=== PATIENT | female | born 1970 | race Hispanic/Latino ===

== ENCOUNTER 2025-04-20 13:40 | Inpatient (IN) | payer MEDICARE, MEDICAID ==
[~2025-04-20] VITALS: Ht 157.5 cm; Wt 89.5 kg
--- NOTE | 2025-04-20 14:49 | ERN ---
General Chief Complaint: LOWER EXTREMITY EDEMA Stated Complaint: RIGHT LEG SWELLING Time Seen by MD: 13:41 Source: patient History of Present Illness Initial Comments My patient, 54-year-old female, presented to the emergency with complaint of right lower extremity swelling. She states that swelling started more than a week ago and it was associated with pain, erythema and induration of the right lower extremity. Patient also has history of psoriasis. Timing/Duration: 1 week Allergies: Coded Allergies: No Known Drug Allergies (Unverified Allergy, Unknown, 04/20/25) Past Medical History Past Medical History: Other Medical History Other: CEREBRAL PALSY, PSORIASIS Past Surgical History: None EENTM: (-) eye pain, (-) blurred vision, (-) tearing, (-) double vision, (-) ear pain, (-) ear discharge, (-) nose pain, (-) nose congestion, (-) throat pain, (-) Throat swelling, (-) mouth pain, (-) tooth pain, (-) mouth swelling, (-) other documentation Respiratory: (-) cough, (-) orthopnea, (-) short of breath, (-) stridor, (-) wheezing, (-) other documentation Cardiovascular: (-) chest pain, (-) edema, (-) palpitations, (-) syncope, (-) dyspnea on exertion, (-) other documentation Gastrointestinal/Abdominal: (-) nausea, (-) vomiting, (-) diarrhea, (-) abdominal pain, (-) abdominal distention, (-) constipation, (-) rectal bleeding, (-) dark stool/melena, (-) other documentation Musculoskeletal: (+) other documentation (Right lower extremity swelling, erythema and tenderness.) Skin: (+) rash, (+) dryness, (+) other documentation (Psoriasis) Physical Exam General Appearance: (+) apparent distress Head/Face Trauma: No Ear, Nose, Throat: (+) hearing grossly normal, (+) moist mucous membraine Neck: (+) normal inspection, (+) supple, (+) full range of motion Respiratory: (+) chest non-tender, (+) lungs clear Heart: (+) regular, (+) no gallop Gastrointestinal: (+) soft, (+) non-tender Back: (+) normal inspection, (+) no CVA tenderness Extremities: (+) normal range of motion, (+) inflammation, (+) swelling, (+) other (Right lower extremity swollen with indurated and erythematous skin) Skin: (+) rash Results Laboratory and Microbiology Lab and Micro Result Laboratory Tests Test 04/20/25 15:08 04/20/25 17:21 White Blood Count 5.9 K/uL (4.8-10.8) Red Blood Count 5.05 MIL/uL (4.00-5.50) Hemoglobin 14.4 g/dL (12.0-16.0) Hematocrit 46.8 % (36-48) Mean Corpuscular Volume 92.7 fL (79-99) Mean Corpuscular Hemoglobin 28.5 pg (27.0-33.0) Mean Corpuscular Hemoglobin Concent 30.8 g/dL (32.0-36.0) L Red Cell Distribution Width 14.5 % (11.0-15.5) Platelet Count 242 K/uL (130-400) Mean Platelet Volume 10.0 fL (7.5-10.5) Immature Granulocyte % (Auto) 0.3 % (0-1) Neutrophils (%) (Auto) 64.5 % (40.0-77.0) Lymphocytes (%) (Auto) 22.4 % (21.0-51.0) Monocytes (%) (Auto) 7.8 % (3.0-13.0) Eosinophils (%) (Auto) 4.3 % (0.0-8.0) Basophils (%) (Auto) 0.7 % (0.0-5.0) Neutrophils # (Auto) 3.8 K/uL (1.8-7.7) Lymphocytes # (Auto) 1.3 K/uL (1.0-4.8) Monocytes # (Auto) 0.5 K/uL (0.1-1.0) Eosinophils # (Auto) 0.25 K/uL (0.00-0.70) Basophils # (Auto) 0.04 K/uL (0.00-0.20) Absolute Immature Granulocyte (auto 0.02 K/uL (0-1) Nucleated Red Blood Cells 0.0 % (0.0-0.19) Red Blood Cell Morphology See comments Sodium Level 142 mmol/L (136-145) Potassium Level 3.2 mmol/L (3.5-5.1) L Chloride Level 102 mmol/L (101-111) Carbon Dioxide Level 33 mmol/L (21-32) H Blood Urea Nitrogen 13 mg/dL (7-18) Creatinine 0.7 mg/dL (0.5-1.0) Glomerular Filtration Rate Calc 103 mL/min (>90) Random Glucose 92 mg/dL (70-105) Total Calcium 8.4 mg/dL (8.5-10.1) L Troponin I High Sensitivity 7 ng/L (4-50) B-Type Natriuretic Peptide 24 pg/mL (0-100) Urine Color YELLOW (YELLOW) Urine Appearance SL CLOUDY (CLEAR) Urine pH 7.5 (5.0-8.0) Urine Specific [place] 1.015 (1.001-1.031) Urine Protein NEGATIVE mg/dL (NEGATIVE) Urine Glucose (UA) NEGATIVE mg/dL (NEGATIVE) Urine Ketones NEGATIVE mg/dL (NEGATIVE) Urine Occult Blood SMALL (NEGATIVE) H Urine Nitrate NEGATIVE (NEGATIVE) Urine Bilirubin NEGATIVE mg/dL (NEGATIVE) Urine Urobilinogen 2.0 mg/dL (0.2-1.0) H Urine Leukocyte Esterase SMALL Jarvis/uL (NEGATIVE) H Urine RBC 0-1 /HPF (0-1) Urine WBC 2-5 /HPF (0-1) H Urine Squamous Epithelial Cells Few /HPF (0-2) Urine Bacteria Few /HPF (None Seen) EKG/XRAY/US/CT/MRI EKG Comment No ST-elevation Rate 65 NE 167 QT 410 [place]: P 8, QRS 98, T 26 X-RAY Comment Chest x-ray No acute cardiopulmonary pathology is evident. MDM MDM: Differential diagnosis: Right lower extremity cellulitis versus erysipelas versus DVT My patient, 54-year-old female, presented with complaint of right lower extremity swelling. She states that swelling started more than a week ago and it was associated with pain, erythema and induration of the right lower extremity. CBC, BMP and UA profile were taken. Venous Doppler of lower extremity was done. For hypokalemia, patient was given K-Lyte. Patient was also given Rocephin 1 g. Patient will be admitted under the care of hospitalist ED Course Orders Procedure Category Date Status Time Cbc With Differential LAB 04/20/25 Complete 14:02 Chest 1vw RAD 04/20/25 Resulted 14:02 12 Lead Ekg Tracing- EKG 04/20/25 Complete Technical 14:02 Troponin I High LAB 04/20/25 Complete Sensitivity 14:02 Basic Metabolic Panel LAB 04/20/25 Complete 14:02 B-Type Natriuretic LAB 04/20/25 Complete Peptide 14:02 Us Venous Doppler US 04/20/25 Taken Bilateral 14:28 Urinalysis Profile LAB 04/20/25 Complete 14:33 Potassium Bicarb/Cit PHA 04/20/25 Complete Ac 25meq (K-Lyte Ta 16:00 Ceftriaxone 1g Vial PHA 04/20/25 Complete (Rocephine 1g Inj) 16:30 Current Medications Medications (Trade) Dose Ordered Sig/Pedrito Route PRN Reason Start Time Stop Time Status Last Admin Dose Admin Ceftriaxone Sodium (ROCEphine 1G INJ) 1 gm ONCE ONCE IVPB 04/20/25 16:30 04/20/25 16:31 DC 04/20/25 18:29 Potassium Bicarbonate (K-Lyte Tablet Eff 25 Meq Tablet.eff) 50 meq ONCE ONCE PO 04/20/25 16:00 04/20/25 16:01 DC 04/20/25 16:00 Vital Signs Date Time Temp Pulse Resp B/P (MAP) Pulse Ox O2 Delivery O2 Flow Rate FiO2 04/20/25 18:33 98.8 68 19 142/74 98 Room Air* 0 04/20/25 15:39 97.9 66 25 156/99 95 Room Air* 0 21 04/20/25 13:41 97.9 70 16 182/89 97 Room Air 0 DX & DISP Disposition: Inpatient Decision to Admit Time: 18:49 Departure Impression: Primary Impression: Cellulitis of right lower extremity Additional Impression: Hypokalemia Condition: Stable Referrals: NONE (PCP) JOSE R RUELAS MD Apr 20, 2025 14:49 FERDINAND PAIGE MD Apr 20, 2025 18:50
--- NOTE | 2025-04-20 15:12 | HMCIMG ---
EXAM: CR Chest, 1 View. CLINICAL HISTORY: SOB COMPARISON: None provided. FINDINGS: LUNGS: There is no mass, infiltrate, or acute pulmonary abnormality. PLEURAL SPACES: No evidence of pleural effusion or pneumothorax. MEDIASTINUM: The cardiomediastinal silhouette is within normal limits. BONES: No acute osseous abnormality. IMPRESSION: No acute cardiopulmonary pathology is evident. /Goodman
--- NOTE | 2025-04-20 15:26 | EKG ---
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
[2025-04-20 15:33] LABS: IMMATURE GRANULOCYTE ABSOLUTE 0.02 K/uL (0-1); NUCLEATED RED BLOOD CELLS 0.0 % (0.0-0.19); PLATELET COUNT (AUTO) 242 K/uL (130-400); RED BLOOD CELL COUNT(AUTO) 5.05 MIL/uL (4.00-5.50); RED CELL DISTRIBUTION WIDTH 14.5 % (11.0-15.5); WHITE BLOOD COUNT (AUTO) 5.9 K/uL (4.8-10.8)
[2025-04-20 15:45] LABS: CREATININE 0.7 mg/dL (0.5-1.0); GLOMERULAR FILTR. RATE CALC 103.0 mL/min (>90); GLUCOSE,RANDOM 92.0 mg/dL (70-105); SODIUM SERUM 142.0 mmol/L (136-145); UREA NITROGEN, BLOOD 13.0 mg/dL (7-18)
[2025-04-20 17:33] LABS: APPEARANCE,URINE SL CLOUDY (CLEAR); GLUCOSE, URINE (UA) NEGATIVE (NEGATIVE); LEUKOCYTE ESTERASE ,URINE SMALL Leu/uL (NEGATIVE); NITRATE,URINE NEGATIVE (NEGATIVE); OCCULT BLOOD,URINE SMALL (NEGATIVE)
[2025-04-20 17:35] LABS: ADD UA MICROSCOPIC YES
[2025-04-20 17:52] LABS: SQUAMOUS EPITHELIAL CELL,UR Few /HPF (0-2)
--- NOTE | 2025-04-20 18:51 | HP ---
[facility] HISTORY AND PHYSICAL Date of Service: Apr 20, 2025 Time of Service: 18:51 PCP: Mary Anne HISTORY OF PRESENT ILLNESS: This is a 54-year-old female with past medical history of cerebral palsy, psoriasis and morbid obesity who was brought by EMS to the ED complaints of right lower extremity swelling which started for the past six days.As per sister who was at bedside ,patient reports something bit her leg 6 days ago and it has been hurting her only at night she said.Patient also noted to have multiple scaly rashes she said she has been having it since last month.As per sister patient went to see her PCP last week and was given meds but no improvement. Seen and examined patient int he ER awake,alert ,coherent and appears comfortable.Patient right lower extremity is red,warm and swollen.Patient denies fever,chills,nausea,vomiting ,chest pain and shortness of breath. Latest vital signs temperature 98.8, heart rate 67, blood pressure 142/76 saturation 95% on 2 L nasal cannula. Labs: CBC unremarkable. Potassium 3.2, CO2 33, total calcium 8.4 troponin seven BNP 24. Urinalysis with trace of esterase and few urine bacteria. Chest x-ray result revealed no acute cardiopulmonary pathology is evident. Venous Doppler to right lower extremity is negative for DVT for preliminary result. While in the ED patient received potassium replacement and ceftriaxone 1 g IV. We will admit patient for further medical management. REVIEW OF SYSTEMS CONSTITUTIONAL: Denies fevers, chills, or night sweats. No unintentional weight loss reported. NEUROLOGICAL: Denies headache, amaurosis fugax, motor weakness, sensory deficit, vertigo/spinning sensation, gait abnormalities, or tremors. ENT: No hearing loss, otalgia, otorrhea, rhinitis, rhinorrhea, hoarseness, or sore throat. CARDIOVASCULAR: Denies any exertional angina, dyspnea on exertion, orthopnea, paroxysmal nocturnal dyspnea, palpitations, life-threatening arrhythmias, claudication. PULMONARY: Denies any shortness of breath, cough, phlegm/sputum, hemoptysis, pleuritic chest pain. SLEEP: Denies morning headaches, daytime somnolence or napping. Denies difficulty falling asleep, staying asleep, waking from sleep. Denies knowledge of snoring. GASTROINTESTINAL: Denies any type of dysphagia to either liquids or solids. Denies nausea, vomiting, pyrosis, early satiety, abdominal pain, diarrhea, constipation, or changes in stool consistency or caliber. Denies coffee-ground emesis, hematemesis, hematochezia, or melanotic stools. GENITOURINARY: Denies frequency, urgency, nocturia, hematuria or incontinence (Storage/Irritative symptoms.) Low urinary stream, straining to void, urinary intermittency or hesitancy, splitting of the voiding stream, terminal dribbling. ENDOCRINOLOGIC: Denies polyuria, polydipsia, polyphagia or heat/cold intoleran damaris. HEMATOLOGIC: Denies thrombophilia/previous clots, or coagulopathy/bleeding disorders. ONCOLOGIC: Denies personal history of malignancy. DERMATOLOGIC: Denies rashes or pruritus. PSYCHIATRIC: Denies any suicidal or homicidal ideation. Denies hallucinations. PAST MEDICAL HISTORY: [ Protocol seek, psoriasis and morbid obesity ] PAST SURGICAL HISTORY: [Kidney stone removal six months ago ] PAST SOCIAL HISTORY: [ Patient lives with sister. Patient denies alcohol tobacco and recreational drug use ] FAMILY HISTORY: [ Noncontributory ] Coded Allergies: No Known Drug Allergies (Unverified Allergy, Unknown, 04/20/25) PHYSICAL EXAM GENERAL APPEARANCE: The patient is awake, alert, and oriented, in no acute cardiopulmonary distress. NEUROLOGICAL: Cranial nerves II-XII grossly intact. Motor is 5/5 in bilateral upper and lower extremities proximal to distal. No sensory deficits. HEENT: Face is symmetric. Pupils are equal and reactive. Extraocular movements are intact. NECK: Supple. No JVD. No thyromegaly. No submental, submandibular, pre- /postauricular, occipital or supraclavicular lymphadenopathy. CHEST: Normal chest expansion. No Telemetry. LUNGS: Absence of any rales, rhonchi or any wheezing. CARDIOVASCULAR: Regular. S1 and S2 normal. No appreciable rubs, murmurs or gallops. ABDOMEN: Soft, nontender, and nondistended. There is no rebound, voluntary guarding, or rigidity. : Deferred. No [place]. EXTREMITIES: Non-edematous and not cyanotic. No clubbing. Good capillary refill. SKIN: No skin breakdown. Vital Sign (Last 24 Hours) 04/20/25 18:33 Temp 98.8 Pulse 68 Resp 19 B/P (MAP) 142/74 Pulse Ox 98 O2 Delivery Room Air* O2 Flow Rate 0 FiO2 21 LABS: Laboratory: Test 04/20/25 17:21 04/20/25 15:08 Range/Units Urine Color YELLOW YELLOW Urine Appearance SL CLOUDY CLEAR Urine pH 7.5 5.0-8.0 Urine Specific [place] 1.015 1.001-1.031 Urine Protein NEGATIVE NEGATIVE mg/dL Urine Glucose (UA) NEGATIVE NEGATIVE mg/dL Urine Ketones NEGATIVE NEGATIVE mg/dL Urine Occult Blood SMALL H NEGATIVE Urine Nitrate NEGATIVE NEGATIVE Urine Bilirubin NEGATIVE NEGATIVE mg/dL Urine Urobilinogen 2.0 H 0.2-1.0 mg/dL Urine Leukocyte Esterase SMALL H NEGATIVE [place]/uL Urine RBC 0-1 0-1 /HPF Urine WBC 2-5 H 0-1 /HPF Urine Squamous Epithelial Cells Few 0-2 /HPF Urine Bacteria Few None Seen /HPF White Blood Count 5.9 4.8-10.8 K/uL Red Blood Count 5.05 4.00-5.50 MIL/uL Hemoglobin 14.4 12.0-16.0 g/dL Hematocrit 46.8 36-48 % Mean Corpuscular Volume 92.7 79-99 fL Mean Corpuscular Hemoglobin 28.5 27.0-33.0 pg Mean Corpuscular Hemoglobin Concent 30.8 L 32.0-36.0 g/dL Red Cell Distribution Width 14.5 11.0-15.5 % Platelet Count 242 130-400 K/uL Mean Platelet Volume 10.0 7.5-10.5 fL Immature Granulocyte % (Auto) 0.3 0-1 % Neutrophils (%) (Auto) 64.5 40.0-77.0 % Lymphocytes (%) (Auto) 22.4 21.0-51.0 % Monocytes (%) (Auto) 7.8 3.0-13.0 % Eosinophils (%) (Auto) 4.3 0.0-8.0 % Basophils (%) (Auto) 0.7 0.0-5.0 % Neutrophils # (Auto) 3.8 1.8-7.7 K/uL Lymphocytes # (Auto) 1.3 1.0-4.8 K/uL Monocytes # (Auto) 0.5 0.1-1.0 K/uL Eosinophils # (Auto) 0.25 0.00-0.70 K/uL Basophils # (Auto) 0.04 0.00-0.20 K/uL Absolute Immature Granulocyte (auto 0.02 0-1 K/uL Nucleated Red Blood Cells 0.0 0.0-0.19 % Red Blood Cell Morphology See comments Sodium Level 142 136-145 mmol/L Potassium Level 3.2 L 3.5-5.1 mmol/L Chloride Level 102 101-111 mmol/L Carbon Dioxide Level 33 H 21-32 mmol/L Blood Urea Nitrogen 13 7-18 mg/dL Creatinine 0.7 0.5-1.0 mg/dL Glomerular Filtration Rate Calc 103 >90 mL/min Random Glucose 92 70-105 mg/dL Total Calcium 8.4 L 8.5-10.1 mg/dL Troponin I High Sensitivity 7 4-50 ng/L B-Type Natriuretic Peptide 24 0-100 pg/mL DIAGNOSTICS / RADIOLOGY: [ ] ASSESSMENT: Right lower extremity cellulitis likely from insect bite POA Hypokalemia POA Psoriasis POA Cerebral palsy POA Morbid obesity POA Elevated blood pressure new onset POA PLAN: We will admit patient in medical surgical We will start on heart healthy diet Continue Rocephin 1 g IV daily for empiric coverage We will add prn medication for fever,pain,cough , nausea and vomiting We will reconcile home meds once medlist available We will seek Infectious Disease consultation We will request labs in am Further orders to follow depending on above results Case discussed with attending physician and came up with above treatment and plan of care. ADVANCED CARE PLANNING 1. Which of the following were discussed? Hospice Care - No Therapeutic options - Yes Advance Directives - No Other discussions - 2. Discussed with who? Patient and sister Lily 3. Voluntary nature of this service was explained to the patient? Yes 4. Amount of time spent - __23 min 5. Reviewed by Physician? (if this service was performed by NPP) Yes Patient seen and examined by me. Agree with note by MILK PROCESSING WORKER SEE ADDITIONAL ORDERS PER CHART DISCUSSED WITH NURSING STAFF JOSH ADAN RUBBER CUTTER Apr 20, 2025 18:51
[2025-04-20] MEDS ORDERED: HYDROcodone/APAP 5/325 1 TAB TABLET PO PRN (19:30)
[2025-04-20] MEDS ORDERED: PoTASSium chloRIDE 20MEQ ER 20 MEQ ERTAB PO PRN (19:30)
[2025-04-20] MEDS ORDERED: MAGNESIUM 2GM PREMIX 50ML 50 ML IV PRN (19:30)
[2025-04-20] MEDS: PoTASSium chl 10% ELIXIR 20MEQ 20 MEQ/15 ML UDCUP PO PRN (22:31)
--- NOTE | 2025-04-20 23:41 | NUR ---
GAVE REPORT TO CHAD JEAN.
[2025-04-21] VITALS (9 sets, daily range): BP systolic 124–155; BP diastolic 66–82; PULSE 53–78; RESP 14–21; TEMP 97.4–98.4; O2SAT 90–97
[2025-04-21 05:25] LABS: IMMATURE GRANULOCYTE ABSOLUTE 0.02 K/uL (0-1); NUCLEATED RED BLOOD CELLS 0.0 % (0.0-0.19); PLATELET COUNT (AUTO) 199 K/uL (130-400); RED BLOOD CELL COUNT(AUTO) 5.06 MIL/uL (4.00-5.50); RED CELL DISTRIBUTION WIDTH 14.5 % (11.0-15.5); WHITE BLOOD COUNT (AUTO) 5.7 K/uL (4.8-10.8)
[2025-04-21 05:48] LABS: ASPARTATE AMINOTRANSFERASE 20.0 U/L (10-37); CREATININE 0.7 mg/dL (0.5-1.0); GLOMERULAR FILTR. RATE CALC 103.0 mL/min (>90); GLUCOSE,RANDOM 99.0 mg/dL (70-105); SODIUM SERUM 139.0 mmol/L (136-145); TOTAL PROTEIN, SERUM 7.5 g/dL (6.0-8.3); UREA NITROGEN, BLOOD 8.0 mg/dL (7-18)
--- NOTE | 2025-04-21 09:56 | NUR ---
DCP:HOME Pt currently lives at home with her sister Lily [phone]. Pt states that she uses a walker at home to ambulate. Pt has a provider that assists her 14 hrs a week and assists with all ADLs, home management, and meals. PCP is [facility] and uses [facility] for any RX needs. At [place] pt will want to go home and family can assist with transportation.
--- NOTE | 2025-04-21 11:34 | HMCIMG ---
EXAM: CR Chest, 1 View. CLINICAL HISTORY: Crackles COMPARISON: None provided. FINDINGS: LUNGS: There is no mass, infiltrate, or acute pulmonary abnormality. PLEURAL SPACES: No evidence of pleural effusion or pneumothorax. MEDIASTINUM: Cardiac size and mediastinal contours within normal limits. BONES: No acute osseous abnormality. IMPRESSION: No acute cardiopulmonary pathology is evident. /Manning
--- NOTE | 2025-04-21 11:40 | HMCIMG ---
US VENOUS DOPPLER BILATERAL REASON: Right lower extremity swollen. Cellulitis versus DVT COMPARISON: None Technique: Bilateral venous doppler ultrasound was performed with spectral analysis and color flow imaging technique. FINDINGS: There is a normal appearance of the common femoral, deep femoral, the profunda femoris and popliteal veins. Proximal calf veins appear normal as well. There is normal response to compression and augmentation. There is no evidence of deep venous thrombosis. IMPRESSION: Normal bilateral lower extremity venous Doppler ultrasound.
--- NOTE | 2025-04-21 12:33 | PN ---
[facility] PROGRESS NOTE Date of Service: Apr 21, 2025 Time of Service: 12:32 HISTORY OF PRESENT ILLNESS: This is a 54-year-old female with past medical history of cerebral palsy, psoriasis and morbid obesity who was brought by EMS to the ED complaints of right lower extremity swelling which started for the past six days.As per sister who was at bedside ,patient reports something bit her leg 6 days ago and it has been hurting her only at night she said.Patient also noted to have multiple scaly rashes she said she has been having it since last month.As per sister patient went to see her PCP last week and was given meds but no improvement. Seen and examined patient int he ER awake,alert ,coherent and appears comfortable.Patient right lower extremity is red,warm and swollen.Patient denies fever,chills,nausea,vomiting ,chest pain and shortness of breath. Latest vital signs temperature 98.8, heart rate 67, blood pressure 142/76 saturation 95% on 2 L nasal cannula. Labs: CBC unremarkable. Potassium 3.2, CO2 33, total calcium 8.4 troponin seven BNP 24. Urinalysis with trace of esterase and few urine bacteria. Chest x-ray result revealed no acute cardiopulmonary pathology is evident. Venous Doppler to right lower extremity is negative for DVT for preliminary result. While in the ED patient received potassium replacement and ceftriaxone 1 g IV. We will admit patient for further medical management. SUBJECTIVE: 04/21/2025: Patient was evaluated bedside in room 114. Patient's sister was at the bedside who provided the history. Patient was hemodynamically stable however was very tearful and anxious at the time of the visit. Patient denied any pain or fever however admitted anxiety over being placed to a residential. Patient has a history of cerebral palsy and has a provider helping with her ADLs. Patient had extensive scaling on her body affecting her face, trunk, hands, and legs. She was warm tender erythema in her right lower extremity resembling cellulitis that was unresponsive to outpatient antibiotics therapy. We obtained a Contrast CT of Rt lower extremity to rule out any abscess and placed an ID consult. Patient's attending was unsure of what medication she uses for psoriasis. We ordered triamcinolone cream for psoriasis and also obtained a dermatology consult. REVIEW OF SYSTEMS CONSTITUTIONAL: Denies fevers, chills, or night sweats. No unintentional weight loss reported. NEUROLOGICAL: Denies headache, motor weakness, sensory deficit, vertigo/spinning sensation CARDIOVASCULAR: Denies any exertional angina, dyspnea on exertion, orthopnea, paroxysmal nocturnal dyspnea, palpitations PULMONARY: Denies any shortness of breath, cough, phlegm/sputum, hemoptysis, pleuritic chest pain. GASTROINTESTINAL: Denies any type of dysphagia to either liquids or solids. Denies nausea, vomiting, pyrosis, early satiety, abdominal pain, diarrhea, constipation GENITOURINARY: Denies frequency, urgency, nocturia, hematuria or incontinence DERMATOLOGIC: Extensive annular rashes scaling on the face, trunk, abdomen, arms and legs. Right lower extremity is warm and erythematous PHYSICAL EXAM GENERAL APPEARANCE: The patient is awake, alert, and oriented, in no acute cardiopulmonary distress NEUROLOGICAL: Cranial nerves II-XII grossly intact. Motor is 5/5 in bilateral upper and lower extremities proximal to distal. No sensory deficits. HEENT: Face is symmetric. Pupils are equal and reactive. Extraocular movements are intact. NECK: Supple. No JVD. No thyromegaly. No submental, submandibular, pre- /postauricular, occipital or supraclavicular lymphadenopathy. CHEST: Normal chest expansion. No Telemetry. LUNGS: Absence of any rales, rhonchi or any wheezing. CARDIOVASCULAR: Regular. S1 and S2 normal. No appreciable rubs, murmurs or gallops. ABDOMEN: Soft, nontender, and nondistended. There is no rebound, voluntary gu arding, or rigidity. : Deferred. No [place]. EXTREMITIES: Right lower extremity is erythematous,, warm and tender. Non- edematous and not cyanotic. No clubbing. Good capillary refill. SKIN: Annular erythematous skin rashes with scaling and flaking on face, trunk, abdomen, arms and legs. Vital Signs (last 8hr) Date Time Temp Pulse Resp B/P (MAP) Pulse Ox O2 Delivery O2 Flow Rate FiO2 04/21/25 11:39 97.5 65 18 127/82 92 Nasal Cannula 2.0 04/21/25 07:35 97.3 53 18 130/78 100 Nasal Cannula 2.0 LABS: Laboratory: Test 04/21/25 05:50 04/21/25 05:10 04/20/25 17:21 04/20/25 15:08 Range/Units Erythrocyte Sedimentation Rate 24 0-30 MM/HR White Blood Count 5.7 4.8-10.8 K/uL Red Blood Count 5.06 4.00-5.50 MIL/uL Hemoglobin 14.5 12.0-16.0 g/dL Hematocrit 48.1 H 36-48 % Mean Corpuscular Volume 95.1 79-99 fL Mean Corpuscular Hemoglobin 28.7 27.0-33.0 pg Mean Corpuscular Hemoglobin Concent 30.1 L 32.0-36.0 g/dL Red Cell Distribution Width 14.5 11.0-15.5 % Platelet Count 199 130-400 K/uL Mean Platelet Volume 9.9 7.5-10.5 fL Immature Granulocyte % (Auto) 0.4 0-1 % Neutrophils (%) (Auto) 59.5 40.0-77.0 % Lymphocytes (%) (Auto) 23.2 21.0-51.0 % Monocytes (%) (Auto) 10.0 3.0-13.0 % Eosinophils (%) (Auto) 6.2 0.0-8.0 % Basophils (%) (Auto) 0.7 0.0-5.0 % Neutrophils # (Auto) 3.4 1.8-7.7 K/uL Lymphocytes # (Auto) 1.3 1.0-4.8 K/uL Monocytes # (Auto) 0.6 0.1-1.0 K/uL Eosinophils # (Auto) 0.35 0.00-0.70 K/uL Basophils # (Auto) 0.04 0.00-0.20 K/uL Absolute Immature Granulocyte (auto 0.02 0-1 K/uL Nucleated Red Blood Cells 0.0 0.0-0.19 % Sodium Level 139 136-145 mmol/L Potassium Level 4.0 3.5-5.1 mmol/L Chloride Level 104 101-111 mmol/L Carbon Dioxide Level 30 21-32 mmol/L Blood Urea Nitrogen 8 7-18 mg/dL Creatinine 0.7 0.5-1.0 mg/dL Glomerular Filtration Rate Calc 103 >90 mL/min Random Glucose 99 70-105 mg/dL Total Calcium 8.2 L 8.5-10.1 mg/dL Magnesium Level 1.90 1.80-2.40 mg/dL Total Bilirubin 0.9 0.2-1.0 mg/dL Aspartate Amino Transf (AST/SGOT) 20 10-37 U/L Alanine Aminotransferase (ALT/SGPT) 14 12-78 U/L Alkaline Phosphatase 80 50-136 U/L C-Reactive Protein, Quantitative 15.60 H 0.5-3.0 mg/L Total Protein 7.5 6.0-8.3 g/dL Albumin 3.0 L 3.5-5.0 g/dL Thyroid Stimulating Hormone (TSH) 2.94 0.36-3.74 uIU/mL Urine Color YELLOW YELLOW Urine Appearance SL CLOUDY CLEAR Urine pH 7.5 5.0-8.0 Urine Specific [place] 1.015 1.001-1.031 Urine Protein NEGATIVE NEGATIVE mg/dL Urine Glucose (UA) NEGATIVE NEGATIVE mg/dL Urine Ketones NEGATIVE NEGATIVE mg/dL Urine Occult Blood SMALL H NEGATIVE Urine Nitrate NEGATIVE NEGATIVE Urine Bilirubin NEGATIVE NEGATIVE mg/dL Urine Urobilinogen 2.0 H 0.2-1.0 mg/dL Urine Leukocyte Esterase SMALL H NEGATIVE [place]/uL Urine RBC 0-1 0-1 /HPF Urine WBC 2-5 H 0-1 /HPF Urine Squamous Epithelial Cells Few 0-2 /HPF Urine Bacteria Few None Seen /HPF Red Blood Cell Morphology See comments Troponin I High Sensitivity 7 4-50 ng/L B-Type Natriuretic Peptide 24 0-100 pg/mL Current Medications Medications (Trade) Dose Ordered Sig/Pedrito Route PRN Reason Start Time Stop Time Status Last Admin Dose Admin Acetaminophen (TYLenol 325MG TAB) 650 mg Q4H PRN PO MILD PAIN (1-3) 04/20/25 19:30 05/20/25 19:29 Acetaminophen (TYLenol 325MG TAB) 650 mg Q6H PRN PO TEMPERATURE GREATER THAN 101.5 04/20/25 19:30 05/20/25 19:29 Acetaminophen/ Hydrocodone Bitart (NORco 5/325MG) 1 tab Q4H PRN PO MODERATE PAIN (4-6) 04/20/25 19:30 04/25/25 19:29 Ceftriaxone Sodium (ROCEphine 1G INJ) 1 gm Q24H IV 04/20/25 19:30 04/30/25 19:29 Magnesium Sulfate 50 ml @ 0 mls/hr PROTOCOL PRN IV OTHER [SEE ORDER COMMENTS] 04/20/25 19:30 05/20/25 19:29 Ondansetron HCl (zoFRAN 4MG INJ) 4 mg Q6H PRN IV NAUSEA/VOMITING 04/20/25 19:30 05/20/25 19:29 Potassium Chloride 100 ml @ 100 mls/hr AD PRN IV POTASSIUM PROTOCOL 04/20/25 19:30 05/20/25 19:29 Potassium Chloride (K-Dur/Klor-Con 20meq) 20 meq AD PRN PO POTASSIUM PROTOCOL 04/20/25 19:30 05/20/25 19:29 Potassium Chloride (KCl 10% Elixir 20meq/15ml) 20 meq AD PRN PO POTASSIUM PROTOCOL 04/20/25 19:30 05/20/25 19:29 04/20/25 22:31 20 MEQ DIAGNOSTICS / RADIOLOGY: [ ] PATIENT: JENNY ELAM MR#: [id number] : 1970 SEX: F AGE: 54 LOCATION: 1MS ORDER [id number] STATUS: ADM IN REPORT#: [id number] SERVICE 1009 REASON: Crackles ORDERING PHYSICIAN: KENDALL TOMLINSON MD PROCEDURE: CXR1VW - CHEST 1VW EXAM: CR Chest, 1 View. CLINICAL HISTORY: Crackles COMPARISON: None provided. FINDINGS: LUNGS: There is no mass, infiltrate, or acute pulmonary abnormality. PLEURAL SPACES: No evidence of pleural effusion or pneumothorax. MEDIASTINUM: Cardiac size and mediastinal contours within normal limits. BONES: No acute osseous abnormality. IMPRESSION: No acute cardiopulmonary pathology is evident. /[place] DICTATED BY: GAVIOTA JAEGER DO DATE: 04/21/25 1233 ELECTRONICALLY SIGNED BY: GAVIOTA JAEGER DO DATE: 04/21/25 1233 PATIENT: JENNY ELAM MR#: [id number] : 1970 SEX: F AGE: 54 LOCATION: 1MS ORDER [id number] STATUS: ADM IN REPORT#: [id number] SERVICE 1428 REASON: Right lower extremity swollen. Cellulitis versus DVT ORDERING PHYSICIAN: JOSE R RUELAS MD PROCEDURE: VENOUS JASON - US VENOUS DOPPLER BILATERAL US VENOUS DOPPLER BILATERAL REASON: Right lower extremity swollen. Cellulitis versus DVT COMPARISON: None Technique: Bilateral venous doppler ultrasound was performed with spectral analysis and color flow imaging technique. FINDINGS: There is a normal appearance of the common femoral, deep femoral, the profunda femoris and popliteal veins. Proximal calf veins appear normal as well. There is normal response to compression and augmentation. There is no evidence of deep venous thrombosis. IMPRESSION: Normal bilateral lower extremity venous Doppler ultrasound. 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 Cerebral palsy with intellectual disability POA Morbid obesity POA Elevated blood pressure new onset POA PLAN: Right lower extremity cellulitis likely from insect bite POA * Patient presented with a nonresolving right lower extremity cellulitis to oral outpatient antibiotic * Patient started on IV ceftriaxone1 g Q 24 * Infectious disease consult was placed and will appreciate their recommendation * Ordered CT with contrast of the right lower extremity to rule out any abscess * Keep the limbs elevated and use ice pack or 1 pack for pain relief * CRP was mildly elevated * Repeat Labs tomorrow a.m. 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 I reviewed the documentation, medical decision making, and treatment plan as noted by the resident physician above. I agree with the findings and plan of care. KENDALL TOMLINSON MD, HARSHAVARDHA MD Apr 21, 2025 12:33
[2025-04-21] MEDS ORDERED: IOHEXOL-350 75 ML VIAL IV ONE (13:07)
--- NOTE | 2025-04-21 13:34 | NUR ---
CT ATTEMPT MADE. EXAMINATION WAS EXPLAINED TO PATIENT AND PT SISTER BEFORE TRANSFERRING TO CT TABLE. THE PATIENT BECAME AGITATED/COMBATIVE WHEN TRANSFERRED TO CT TABLE. PATIENT WAS TRANSFERRED BACK TO BED. PT VERBALIZED SHE DID NOT WANT THE CT SCAN DONE WITH SISTER IN ROOM.
--- NOTE | 2025-04-21 14:32 | CONS ---
INFECTIOUS DISEASE CONSULTATION NOTE Date of Service: Apr 21, 2025 Reason for Consultation: Suspected right leg cellulitis Requesting Physician: Britney William. HISTORY OF PRESENT ILLNESS: This is a 54-year-old female patient with current medical history of cerebral palsy with intellectual disability, severe psoriasis and morbid obesity who was brought to the emergency room for chief complaint of right lower extremity pain and swelling. Patient is unable to answer all the questions appropriately therefore most information was obtained from patient's sister who is visiting at bedside. Sister reported that patient started complaining of pain to the right lower extremity on the day of admission and today she observed patient had a slight limping during ambulation. Denied any falls or any other type of injury. We will obtain an x-ray of the right lower extremity to rule out fracture On examination today there is very minimal erythema to the right lower extremity and the swelling appears to be improving. A urinalysis is positive but patient has remained afebrile since admission and the WBC is 5.7. Patient has been started on ceftriaxone. From infectious disease standpoint patient can be discharge on Cephalexin 500 mg Tid when ready to discharge. Prescription was written. REVIEW OF SYSTEMS CONSTITUTIONAL: Denies fever, chills, or fatigue. HEAD/FACE: No signs of trauma. EENT: Denies eye pain, blurred vision, double vision, or light sensitivity. RESPIRATORY: Denies shortness of breath, cough, wheezing CARDIOVASCULAR: Denies chest pain, palpitation, syncope GASTROINTESTINAL/ABDOMINAL: Denies abdominal pain, constipation, diarrhea, nausea or vomiting GENITOURINARY: Denies dysuria or hematuria. MUSCULOSKELETAL: Right lower extremity pain and swelling. INTEGUMENTARY: Generalized Psoriasis. NEUROLOGICAL/PSYCH: Denies anxiety, depression, heat or cold intolerance. PAST MEDICAL HISTORY: Cerebral palsy with intellectual disability. Morbid obesity. Psoriasis. Kidney stones. PAST SURGICAL HISTORY: Kidney stone removal. PAST SOCIAL HISTORY: No current use of tobacco, alcohol or any other illicit drug. FAMILY HISTORY: Noncontributory. Coded Allergies: No Known Drug Allergies (Unverified Allergy, Unknown, 04/20/25) PHYSICAL EXAM EYES: Anicteric. Pupils equal and reactive. HENT: No oral thrush seen, moist Oral mucosa NECK: Supple, no JVD or thyromegaly. LUNGS: Good air entry. No rales, no rhonchi. CARDIOVASCULAR: S1, S2 regular. No murmur heard. ABDOMEN: Soft, non tender, bowel sounds present, no organomegaly CENTRAL NERVOUS SYSTEM: Awake, alert, oriented x 2. Intellectual disability. SKIN: Generalized psoriasis. LYMPHATICS: No peripheral lymphadenopathy MUSCULOSKELETAL: No joint swelling, erythema or tenderness. EXTREMITIES: No cyanosis or clubbing. Right lower extremity edema, improving. Right lower extremity erythema. Right lower extremity pain. BACK: No deformity, no pressure ulcer. GENITOURINARY: No dysuria or hematuria. Vital Sign (Last 24 Hours) 04/21/25 04/21/25 11:39 13:55 Temp 97.5 Pulse 78 Resp 14 B/P (MAP) 127/82 Pulse Ox 92 O2 Delivery N/A Room Air O2 Flow Rate 2.0 FiO2 21 Intake & Output (last 24hrs) 04/20/25 04/20/25 04/21/25 15:00 23:00 07:00 Intake Total 0 ml Balance 0 ml LABS: Laboratory: Test 04/21/25 05:50 04/21/25 05:10 04/20/25 17:21 04/20/25 15:08 Range/Units Erythrocyte Sedimentation Rate 24 0-30 MM/HR White Blood Count 5.7 4.8-10.8 K/uL Red Blood Count 5.06 4.00-5.50 MIL/uL Hemoglobin 14.5 12.0-16.0 g/dL Hematocrit 48.1 H 36-48 % Mean Corpuscular Volume 95.1 79-99 fL Mean Corpuscular Hemoglobin 28.7 27.0-33.0 pg Mean Corpuscular Hemoglobin Concent 30.1 L 32.0-36.0 g/dL Red Cell Distribution Width 14.5 11.0-15.5 % Platelet Count 199 130-400 K/uL Mean Platelet Volume 9.9 7.5-10.5 fL Immature Granulocyte % (Auto) 0.4 0-1 % Neutrophils (%) (Auto) 59.5 40.0-77.0 % Lymphocytes (%) (Auto) 23.2 21.0-51.0 % Monocytes (%) (Auto) 10.0 3.0-13.0 % Eosinophils (%) (Auto) 6.2 0.0-8.0 % Basophils (%) (Auto) 0.7 0.0-5.0 % Neutrophils # (Auto) 3.4 1.8-7.7 K/uL Lymphocytes # (Auto) 1.3 1.0-4.8 K/uL Monocytes # (Auto) 0.6 0.1-1.0 K/uL Eosinophils # (Auto) 0.35 0.00-0.70 K/uL Basophils # (Auto) 0.04 0.00-0.20 K/uL Absolute Immature Granulocyte (auto 0.02 0-1 K/uL Nucleated Red Blood Cells 0.0 0.0-0.19 % Sodium Level 139 136-145 mmol/L Potassium Level 4.0 3.5-5.1 mmol/L Chloride Level 104 101-111 mmol/L Carbon Dioxide Level 30 21-32 mmol/L Blood Urea Nitrogen 8 7-18 mg/dL Creatinine 0.7 0.5-1.0 mg/dL Glomerular Filtration Rate Calc 103 >90 mL/min Random Glucose 99 70-105 mg/dL Total Calcium 8.2 L 8.5-10.1 mg/dL Magnesium Level 1.90 1.80-2.40 mg/dL Total Bilirubin 0.9 0.2-1.0 mg/dL Aspartate Amino Transf (AST/SGOT) 20 10-37 U/L Alanine Aminotransferase (ALT/SGPT) 14 12-78 U/L Alkaline Phosphatase 80 50-136 U/L C-Reactive Protein, Quantitative 15.60 H 0.5-3.0 mg/L Total Protein 7.5 6.0-8.3 g/dL Albumin 3.0 L 3.5-5.0 g/dL Thyroid Stimulating Hormone (TSH) 2.94 0.36-3.74 uIU/mL Urine Color YELLOW YELLOW Urine Appearance SL CLOUDY CLEAR Urine pH 7.5 5.0-8.0 Urine Specific [place] 1.015 1.001-1.031 Urine Protein NEGATIVE NEGATIVE mg/dL Urine Glucose (UA) NEGATIVE NEGATIVE mg/dL Urine Ketones NEGATIVE NEGATIVE mg/dL Urine Occult Blood SMALL H NEGATIVE Urine Nitrate NEGATIVE NEGATIVE Urine Bilirubin NEGATIVE NEGATIVE mg/dL Urine Urobilinogen 2.0 H 0.2-1.0 mg/dL Urine Leukocyte Esterase SMALL H NEGATIVE [place]/uL Urine RBC 0-1 0-1 /HPF Urine WBC 2-5 H 0-1 /HPF Urine Squamous Epithelial Cells Few 0-2 /HPF Urine Bacteria Few None Seen /HPF Red Blood Cell Morphology See comments Troponin I High Sensitivity 7 4-50 ng/L B-Type Natriuretic Peptide 24 0-100 pg/mL ASSESSMENT: Suspected cellulitis. Right lower extremity pain. Right lower extremity chronic Dermatitis. Urinary tract infection. Generalized Psoriasis. Morbid obesity. PLAN: Continue ceftriaxone. Obtain x-ray of the right lower extremity to rule out fracture. From infectious disease standpoint patient can be discharge on Cephalexin 500 mg Tid when ready to discharge. Prescription was written. Thank you for allowing ID to participate in the care of this patient. This case was reviewed and discussed with my supervising physician Dr. Rivero and the above assessment and plan was formulated and agreed upon. ATTESTATION BY PHYSICIAN I have seen and examined the patient. I reviewed the documentation, medical decision making, and treatment plan as noted by the mid-level provider above. I agree with the findings and plan of care. YESY RIVERO MD, MIRTA L [facility] Apr 21, 2025 14:32
[2025-04-21] MEDS: ENOXAPARIN SODIUM 40 MG/0.4 ML SYRINGE SQ SCH (14:58)
--- NOTE | 2025-04-21 15:10 | NUR ---
Pt. anxious and crying stating she wants to go home and that she is anxious. Xanax administered as per MD order.
--- NOTE | 2025-04-21 18:07 | HMCIMG ---
EXAM: CR RIGHT TIBIA/FIBULA, 2 VIEWS CLINICAL HISTORY: Rule out fracture. COMPARISON: None provided TECHNIQUE: Two views of the right leg were obtained. FINDINGS: Bones: No fracture or subluxation. No sclerotic or destructive changes observed. Joints: Preservation of the joint space. The articular surfaces are unremarkable. Soft tissues: Soft tissue thickening is noted along lower right leg likely representing cellulitis versus thrombophlebitis. IMPRESSION: 1. Soft tissue thickening along the lower right leg likely representing cellulitis versus thrombophlebitis.Ultrasound doppler right leg is suggested for further evaluation. 2. No acute fracture or dislocation. /[place]
[2025-04-21] MEDS: TRIAMCINOLONE ACETONIDE 0.1% CREAM 15GM TP SCH (20:31)
--- NOTE | 2025-04-21 21:15 | HMCIMG ---
STUDY: X-RAY OF THE RIGHT TIBIA AND FIBULA, 2 VIEWS HISTORY: Rule out fracture. TECHNIQUE: AP and lateral views of the right tibia and fibula are submitted for interpretation. COMPARISON: None provided. FINDINGS: Bones and joints: Right tibia and fibula are intact without acute fracture, cortical disruption, or destructive osseous lesion. Alignment at the visualized knee and ankle joints is preserved. Joint spaces are maintained. Soft tissues: Visualized soft tissues are unremarkable without soft tissue swelling, gas, or radiopaque foreign body. IMPRESSION: * No acute fracture or malalignment of the right tibia or fibula. /[place]
[2025-04-22] VITALS: BP 124/86; PULSE 84; RESP 18; TEMP 98.1
[2025-04-22 03:23] VITALS: BP 128/82; PULSE 89; RESP 20; TEMP 97.5
[2025-04-22 07:31] VITALS: BP 150/82; PULSE 77; RESP 18; TEMP 98.3
[2025-04-22 07:40] LABS: IMMATURE GRANULOCYTE ABSOLUTE 0.04 K/uL (0-1); NUCLEATED RED BLOOD CELLS 0.0 % (0.0-0.19); PLATELET COUNT (AUTO) 196 K/uL (130-400); RED BLOOD CELL COUNT(AUTO) 5.32 MIL/uL (4.00-5.50); RED CELL DISTRIBUTION WIDTH 14.5 % (11.0-15.5); WHITE BLOOD COUNT (AUTO) 6.2 K/uL (4.8-10.8)
[2025-04-22 07:55] LABS: CREATININE 0.6 mg/dL (0.5-1.0); GLOMERULAR FILTR. RATE CALC 107.0 mL/min (>90); GLUCOSE,RANDOM 88.0 mg/dL (70-105); SODIUM SERUM 139.0 mmol/L (136-145); UREA NITROGEN, BLOOD 9.0 mg/dL (7-18)
[2025-04-22 08:00] VITALS: O2SAT 98
--- NOTE | 2025-04-22 11:37 | PN ---
INFECTIOUS DISEASE FOLLOWUP NOTE SUBJECTIVE: The patient was seen. No fever, no chills. No nausea. No vomiting. No abdominal pain. No chest pain or palpitations. No joint pain or joint swelling. No depression. No suicidal ideation. No dysuria, no hematuria. No bleeding tendency. No rashes or itchiness. PHYSICAL EXAMINATION: VITAL SIGNS: Temperature today is 97.5. EYES: No icterus. Pupils are equal and reactive. HENT: No oral thrush seen. Moist oral mucosa. NECK: Supple. No JVD or thyromegaly. LUNGS: Good air entry. No rales. No rhonchi. CARDIOVASCULAR: S1 and S2, regular. No murmur heard. ABDOMEN: Obese. Soft. Bowel sound is present. CENTRAL NERVOUS SYSTEM: Awake, alert, and oriented x3. No focal deficits. SKIN: The patient has psoriasis. LYMPHATIC: No peripheral lymphadenopathy. BACK: No deformity or pressure ulcer. EXTREMITIES: Cellulitis of the right leg is improving. ASSESSMENT: A 54-year-old female with multiple problems including: * Right lower extremity cellulitis. * Psoriasis. * Morbid obesity. * Mental retardation. PLAN: * Continue . * Continue nutritional support. * Continue . * Continue GI prophylaxis. * Monitor electrolytes. * Patient will be followed up closely. TID: [id number] RECEIPT: [id number]
[2025-04-22 11:42] VITALS: BP 137/87; PULSE 83; RESP 18; TEMP 98.6
--- NOTE | 2025-04-22 13:36 | DS ---
Discharge Summary Hospital Course Summary: This is a 54-year-old female patient with current medical history of cerebral palsy with intellectual disability, severe psoriasis and morbid obesity who was brought to the emergency room for chief complaint of right lower extremity pain and swelling. Patient is unable to answer all the questions appropriately therefore most information was obtained from patient's sister who is visiting at bedside. Sister reported that patient started complaining of pain to the right lower extremity on the day of admission and today she observed patient had a slight limping during ambulation. Denied any falls or any other type of injury. We obtained a Right tibia and ankle which was negative for fractures but positive for soft tissue thickening. On examination there was very minimal erythema to the right lower extremity and the swelling appears to be improving. A urinalysis is positive but patient has remained afebrile since admission and the WBC is 5.7. Patient has been started on ceftriaxone. A CT scan was order to assess for any abscess, however patient became very combative and the imaging could not be performed. In addition to this, patient has extensive psoriasis covering most of the body, face and scalp with scaling and flaking and hence dermatology consult was obtained. Topical clobetasol cream was applied to the affected areas and dermatology recommendations could not be obtained due to it being the holiday. Throughout the admission patient remained extremely anxious, was crying and unable to answer any questions appropriately. Patient was repeatedly insisting on going home. Patient will be discharged home, to continue cephalexin 500 mg three times daily for 7 days. Patient advised on avoid applying clobetasol cream on the face, under armpits, and genital areas. Patient to follow up with PCP in 2-3 days. Also patient advised to follow up with Dr. Arenas in 1-2 weeks to follow up on the psoriasis. Lab Manager(s): Dr. Rivero, Infectious disease Dr. Arenas, [employer] Sales Representative INFECTIOUS DISEASE CONSULTATION NOTE Date of Service: Apr 21, 2025 Reason for Consultation: Suspected right leg cellulitis Requesting Physician: Britney William. HISTORY OF PRESENT ILLNESS: This is a 54-year-old female patient with current medical history of cerebral palsy with intellectual disability, severe psoriasis and morbid obesity who was brought to the emergency room for chief complaint of right lower extremity pain and swelling. Patient is unable to answer all the questions appropriately therefore most information was obtained from patient's sister who is visiting at bedside. Sister reported that patient started complaining of pain to the right lower extremity on the day of admission and today she observed patient had a slight limping during ambulation. Denied any falls or any other type of injury. We will obtain an x-ray of the right lower extremity to rule out fracture On examination today there is very minimal erythema to the right lower extremity and the swelling appears to be improving. A urinalysis is positive but patient has remained afebrile since admission and the WBC is 5.7. Patient has been started on ceftriaxone. From infectious disease standpoint patient can be disch arge on Cephalexin 500 mg Tid when ready to discharge. Prescription was written. REVIEW OF SYSTEMS CONSTITUTIONAL: Denies fever, chills, or fatigue. HEAD/FACE: No signs of trauma. EENT: Denies eye pain, blurred vision, double vision, or light sensitivity. RESPIRATORY: Denies shortness of breath, cough, wheezing CARDIOVASCULAR: Denies chest pain, palpitation, syncope GASTROINTESTINAL/ABDOMINAL: Denies abdominal pain, constipation, diarrhea, nausea or vomiting GENITOURINARY: Denies dysuria or hematuria. MUSCULOSKELETAL: Right lower extremity pain and swelling. INTEGUMENTARY: Generalized Psoriasis. NEUROLOGICAL/PSYCH: Denies anxiety, depression, heat or cold intolerance. PAST MEDICAL HISTORY: Cerebral palsy with intellectual disability. Morbid obesity. Psoriasis. Kidney stones. PAST SURGICAL HISTORY: Kidney stone removal. PAST SOCIAL HISTORY: No current use of tobacco, alcohol or any other illicit drug. FAMILY HISTORY: Noncontributory. Coded Allergies: No Known Drug Allergies (Unverified Allergy, Unknown, 04/20/25) PHYSICAL EXAM EYES: Anicteric. Pupils equal and reactive. HENT: No oral thrush seen, moist Oral mucosa NECK: Supple, no JVD or thyromegaly. LUNGS: Good air entry. No rales, no rhonchi. CARDIOVASCULAR: S1, S2 regular. No murmur heard. ABDOMEN: Soft, non tender, bowel sounds present, no organomegaly CENTRAL NERVOUS SYSTEM: Awake, alert, oriented x 2. Intellectual disability. SKIN: Generalized psoriasis. LYMPHATICS: No peripheral lymphadenopathy MUSCULOSKELETAL: No joint swelling, erythema or tenderness. EXTREMITIES: No cyanosis or clubbing. Right lower extremity edema, improving. Right lower extremity erythema. Right lower extremity pain. BACK: No deformity, no pressure ulcer. GENITOURINARY: No dysuria or hematuria. Vital Sign (Last 24 Hours) 04/21/25 04/21/25 11:39 13:55 Temp 97.5 Pulse 78 Resp 14 B/P (MAP) 127/82 Pulse Ox 92 O2 Delivery N/A Room Air O2 Flow Rate 2.0 FiO2 21 Intake & Output (last 24hrs) 04/20/25 04/20/25 04/21/25 15:00 23:00 07:00 Intake Total 0 ml Balance 0 ml LABS: Laboratory: Test 04/21/25 05:50 04/21/25 05:10 04/20/25 17:21 04/20/25 15:08 Range/Units Erythrocyte Sedimentation Rate 24 0-30 MM/HR White Blood Count 5.7 4.8-10.8 K/uL Red Blood Count 5.06 4.00-5.50 MIL/uL Hemoglobin 14.5 12.0-16.0 g/dL Hematocrit 48.1 H 36-48 % Mean Corpuscular Volume 95.1 79-99 fL Mean Corpuscular Hemoglobin 28.7 27.0-33.0 pg Mean Corpuscular Hemoglobin Concent 30.1 L 32.0-36.0 g/dL Red Cell Distribution Width 14.5 11.0-15.5 % Platelet Count 199 130-400 K/uL Mean Platelet Volume 9.9 7.5-10.5 fL Immature Granulocyte % (Auto) 0.4 0-1 % Neutrophils (%) (Auto) 59.5 40.0-77.0 % Lymphocytes (%) (Auto) 23.2 21.0-51.0 % Monocytes (%) (Auto) 10.0 3.0-13.0 % Eosinophils (%) (Auto) 6.2 0.0-8.0 % Basophils (%) (Auto) 0.7 0.0-5.0 % Neutrophils # (Auto) 3.4 1.8-7.7 K/uL Lymphocytes # (Auto) 1.3 1.0-4.8 K/uL Monocytes # (Auto) 0.6 0.1-1.0 K/uL Eosinophils # (Auto) 0.35 0.00-0.70 K/uL Basophils # (Auto) 0.04 0.00-0.20 K/uL Absolute Immature Granulocyte (auto 0.02 0-1 K/uL Nucleated Red Blood Cells 0.0 0.0-0.19 % Sodium Level 139 136-145 mmol/L Potassium Level 4.0 3.5-5.1 mmol/L Chloride Level 104 101-111 mmol/L Carbon Dioxide Level 30 21-32 mmol/L Blood Urea Nitrogen 8 7-18 mg/dL Creatinine 0.7 0.5-1.0 mg/dL Glomerular Filtration Rate Calc 103 >90 mL/min Random Glucose 99 70-105 mg/dL Total Calcium 8.2 L 8.5-10.1 mg/dL Magnesium Level 1.90 1.80-2.40 mg/dL Total Bilirubin 0.9 0.2-1.0 mg/dL Aspartate Amino Transf (AST/SGOT) 20 10-37 U/L Alanine Aminotransferase (ALT/SGPT) 14 12-78 U/L Alkaline Phosphatase 80 50-136 U/L C-Reactive Protein, Quantitative 15.60 H 0.5-3.0 mg/L Total Protein 7.5 6.0-8.3 g/dL Albumin 3.0 L 3.5-5.0 g/dL Thyroid Stimulating Hormone (TSH) 2.94 0.36-3.74 uIU/mL Urine Color YELLOW YELLOW Urine Appearance SL CLOUDY CLEAR Urine pH 7.5 5.0-8.0 Urine Specific [place] 1.015 1.001-1.031 Urine Protein NEGATIVE NEGATIVE mg/dL Urine Glucose (UA) NEGATIVE NEGATIVE mg/dL Urine Ketones NEGATIVE NEGATIVE mg/dL Urine Occult Blood SMALL H NEGATIVE Urine Nitrate NEGATIVE NEGATIVE Urine Bilirubin NEGATIVE NEGATIVE mg/dL Urine Urobilinogen 2.0 H 0.2-1.0 mg/dL Urine Leukocyte Esterase SMALL H NEGATIVE [place]/uL Urine RBC 0-1 0-1 /HPF Urine WBC 2-5 H 0-1 /HPF Urine Squamous Epithelial Cells Few 0-2 /HPF Urine Bacteria Few None Seen /HPF Red Blood Cell Morphology See comments Troponin I High Sensitivity 7 4-50 ng/L B-Type Natriuretic Peptide 24 0-100 pg/mL ASSESSMENT: Suspected cellulitis. Right lower extremity pain. Right lower extremity chronic Dermatitis. Urinary tract infection. Generalized Psoriasis. Morbid obesity. PLAN: Continue ceftriaxone. Obtain x-ray of the right lower extremity to rule out fracture. From infectious disease standpoint patient can be discharge on Cephalexin 500 mg Tid when ready to discharge. Prescription was written. Thank you for allowing ID to participate in the care of this patient. This case was reviewed and discussed with my supervising physician Dr. Rivero and the above assessment and plan was formulated and agreed upon. ATTESTATION BY PHYSICIAN I have seen and examined the patient. I reviewed the documentation, medical decision making, and treatment plan as noted by the mid-level provider above. I agree with the findings and plan of care. YESY RIVERO MD, MIRTA L FNP Apr 21, 2025 14:32 Electronically Signed by: YANIRA BURNETT [facility], 04/21/25 2328 Electronically Co-Signed by: Procedure(s): PATIENT: JENNY ELAM MR#: [id number] : 1970 SEX: F AGE: 54 LOCATION: [facility] ORDER 1403 STATUS: REG ER REPORT#: [id number] SERVICE 1402 REASON: SOB ORDERING PHYSICIAN: FERDINAND PAIGE MD PROCEDURE: CXR1VW - CHEST 1VW EXAM: CR Chest, 1 View. CLINICAL HISTORY: SOB COMPARISON: None provided. FINDINGS: LUNGS: There is no mass, infiltrate, or acute pulmonary abnormality. PLEURAL SPACES: No evidence of pleural effusion or pneumothorax. MEDIASTINUM: The cardiomediastinal silhouette is within normal limits. BONES: No acute osseous abnormality. IMPRESSION: No acute cardiopulmonary pathology is evident. /[facility] DICTATED BY: GAVIOTA JAEGER DO DATE: 04/20/25 161 ELECTRONICALLY SIGNED BY: GAVIOTA JAEGER DO DATE: 04/20/25 161 PATIENT: JENNY ELAM MR#: [id number] : 1970 SEX: F AGE: 54 LOCATION: 1MS ORDER 1430 STATUS: ADM IN REPORT#: [id number] SERVICE 1428 REASON: Right lower extremity swollen. Cellulitis versus DVT ORDERING PHYSICIAN: JOSE R RUELAS MD PROCEDURE: VENOUS JASON - US VENOUS DOPPLER BILATERAL US VENOUS DOPPLER BILATERAL REASON: Right lower extremity swollen. Cellulitis versus DVT COMPARISON: None Technique: Bilateral venous doppler ultrasound was performed with spectral analysis and color flow imaging technique. FINDINGS: There is a normal appearance of the common femoral, deep femoral, the profunda femoris and popliteal veins. Proximal calf veins appear normal as well. There is normal response to compression and augmentation. There is no evidence of deep venous thrombosis. IMPRESSION: Normal bilateral lower extremity venous Doppler ultrasound. DICTATED BY: ESME DELONG MD DATE: 04/21/25 1138 ELECTRONICALLY SIGNED BY: ESME DELONG MD DATE: 04/21/25 1140 PATIENT: JENNY ELAM MR#: [id number] : 1970 SEX: F AGE: 54 LOCATION: 1MS ORDER 1010 STATUS: ADM IN REPORT#: [id number] SERVICE 1009 REASON: Crackles ORDERING PHYSICIAN: KENDALL TOMLINSON MD PROCEDURE: CXR1VW - CHEST 1VW EXAM: CR Chest, 1 View. CLINICAL HISTORY: Crackles COMPARISON: None provided. FINDINGS: LUNGS: There is no mass, infiltrate, or acute pulmonary abnormality. PLEURAL SPACES: No evidence of pleural effusion or pneumothorax. MEDIASTINUM: Cardiac size and mediastinal contours within normal limits. BONES: No acute osseous abnormality. IMPRESSION: No acute cardiopulmonary pathology is evident. /[facility] DICTATED BY: GAVIOTA JAEGER DO DATE: 04/21/25 1233 ELECTRONICALLY SIGNED BY: GAVIOTA JAEGER DO DATE: 04/21/25 1233 PATIENT: JENNY ELAM MR#: [id number] : 1970 SEX: F AGE: 54 LOCATION: 1MS ORDER 1505 STATUS: ADM IN [facility] REPORT#: [id number] SERVICE 1501 REASON: Rule out fracture ORDERING PHYSICIAN: YANIRA BURNETT [employer] TECHNICIAN PROCEDURE: QVL7HQCS - ANKLE 2VWS RT ADDENDUM REPORT ADDENDUM: Results were shared by telephone at 7:17 PM EST on 04-21-2025 and acknowledged by RN GLADYS. /[place] EXAM: CR RIGHT TIBIA/FIBULA, 2 VIEWS CLINICAL HISTORY: Rule out fracture. COMPARISON: None provided TECHNIQUE: Two views of the right leg were obtained. FINDINGS: Bones: No fracture or subluxation. No sclerotic or destructive changes observed. Joints: Preservation of the joint space. The articular surfaces are unremarkable. Soft tissues: Soft tissue thickening is noted along lower right leg likely representing cellulitis versus thrombophlebitis. IMPRESSION: 1. Soft tissue thickening along the lower right leg likely representing cellulitis versus thrombophlebitis.Ultrasound doppler right leg is suggested for further evaluation. 2. No acute fracture or dislocation. /[place] DICTATED BY: CATHY TURNER MD DATE: 04/21/251923 ELECTRONICALLY SIGNED BY: DATE: EXAM: CR RIGHT TIBIA/FIBULA, 2 VIEWS CLINICAL HISTORY: Rule out fracture. COMPARISON: None provided TECHNIQUE: Two views of the right leg were obtained. FINDINGS: Bones: No fracture or subluxation. No sclerotic or destructive changes observed. Joints: Preservation of the joint space. The articular surfaces are unremarkable. Soft tissues: Soft tissue thickening is noted along lower right leg likely representing cellulitis versus thrombophlebitis. IMPRESSION: 1. Soft tissue thickening along the lower right leg likely representing cellulitis versus thrombophlebitis.Ultrasound doppler right leg is suggested for further evaluation. 2. No acute fracture or dislocation. /[place] DICTATED BY: CATHY TURNER MD DATE: 04/21/251906 ELECTRONICALLY SIGNED BY: CATHY TURNER MD DATE: 04/21/251906 PATIENT: JENNY ELAM MR#: [id number] : 1970 SEX: F AGE: 54 LOCATION: 1MS ORDER 04 STATUS: ADM IN REPORT#: [id number] SERVICE 150 REASON: Rule out fracture ORDERING PHYSICIAN: YANIRA BURNETT [employer] TECHNICIAN PROCEDURE: TIBFIB RT - TIBIA/FIBULA 2VWS RT STUDY: X-RAY OF THE RIGHT TIBIA AND FIBULA, 2 VIEWS HISTORY: Rule out fracture. TECHNIQUE: AP and lateral views of the right tibia and fibula are submitted for interpretation. COMPARISON: None provided. FINDINGS: Bones and joints: Right tibia and fibula are intact without acute fracture, cortical disruption, or destructive osseous lesion. Alignment at the visualized knee and ankle joints is preserved. Joint spaces are maintained. Soft tissues: Visualized soft tissues are unremarkable without soft tissue swelling, gas, or radiopaque foreign body. IMPRESSION: * No acute fracture or malalignment of the right tibia or fibula. /[place] DICTATED BY: CATHY TURNER MD DATE: 04/21/252213 ELECTRONICALLY SIGNED BY: CATHY TURNER MD DATE: 04/21/252213 Assessment/Plan: ASSESSMENT: Right lower extremity cellulitis likely from insect bite, resolving Hypokalemia, resolved Extensive Plaque psoriasis affecting most of the body Cerebral palsy with intellectual disability Morbid obesity Elevated blood pressure new onset Discharge Instructions: ADMISSION DATE : 04/20/25 DISCHARGE DATE: 04/22/25 DISPOSITION : Home CONDITION : Stable ANALYTICS INTERN(S) : Dr. Rivero, Dr. Arenas FOLLOW UP APPOINTMENT(S) : f/u with PCP in one 2-3 days, f/u with Dr. Arenas in 1-2 weeks PROCEDURES: None IMAGING (S) : report attached to summary MICROBIOLOGY : report attached to summary ACTIVITY : ad torito HOME MEDICATIONS : Continued Home Medications: Active Scripts Clobetasol Propionate (Clobetasol Propionate) 0.05 % Cream..g., 1 APPL TP BID for 7 Days, #60 GM 0 Refills apply to affected area(s) Prov:CATARINA STAUFFER MD 04/22/25 New Medications: Clobetasol Propionate (Clobetasol Propionate) 0.05 % Cream..g. 1 APPL TP BID for 7 Days, #60 GM 0 Refills apply to affected area(s) Time spent arranging discharge: 1-30 minutes ATTESTATION BY PHYSICIAN I have seen and examined the patient. I reviewed the documentation, medical decision making, and treatment plan as noted by the resident physician above. I agree with the findings and plan of care. KENDALL TOMLINSON MD, HARSHAVARDHA MD Apr 22, 2025 13:36
[2025-04-22] MEDS ORDERED: CLOB30CR4 TP (15:31)
--- NOTE | 2025-04-22 17:15 | NUR ---
DC INSTRUCTION PROVIDED TO PATIENT , SISTER AND NIECE , EXPLAINED TO NIECE ON IMPORTANCE TO NOT APPLY ON SENSITVE AREAS , FACE , ARMPITS AND VAGINAL AREA . ONLY TO APPLY ON OTHER AREAS , ALL 3 VERBALIZED UNDERSTANDING
== END 2025-04-22 16:14 | disposition home or self-care (01) | DRG 603 ==
LOC: EDH 13:40 → EDHIP 19:16 → 1MS 23:48
PROVIDERS: ADMIT Hospitalist; ATTEND Hospitalist
DX: L03.115 Cellulitis of right lower limb (principal); E66.01 Morbid (severe) obesity due to excess calories; N39.0 Urinary tract infection, site not specified; G80.8 Other cerebral palsy; E87.6 Hypokalemia; W57.XXXA Bitten or stung by nonvenomous insect and other nonvenomous arthropods, initial encounter; F79 Unspecified intellectual disabilities; L40.0 Psoriasis vulgaris; L30.9 Dermatitis, unspecified; F41.9 Anxiety disorder, unspecified; Z81.0 Family history of intellectual disabilities; Z87.442 Personal history of urinary calculi; Z68.36 Body mass index [BMI] 36.0-36.9, adult
CPT/HCPCS: 36415; 71045; 73590; 73600; 80048; 80053; 81001; 83735; 83880; 84443; 84484; 85025; 85651; 86140; 93005; 93970; 96374; 99285; J0696; J1650; Q9967